=== PATIENT | male | born 1950 | race Two or more races ===

== ENCOUNTER 2021-04-21 12:57 | Inpatient (IN) | payer OTHER, MEDICAID ==
[~2021-04-21] VITALS: Ht 182.9 cm; Wt 57.0 kg
[2021-04-21] MEDS ORDERED: SODIUM CHLORIDE 0.9% 1,000 ML IVB ONE (13:15)
[2021-04-21] MEDS ORDERED: ONDANSETRON HCL 4 MG/2 ML VIAL IV ONE (13:15)
[2021-04-21 14:05] LABS: Hematocrit 55.2 % (41.0-53.0); Hemoglobin 18.5 g/dL (13.5-17.5); Mean Corpuscular Hemoglobin 32.6 pg (28.0-32.0); Mean Corpuscular Hgb Conc. 33.5 g/dL (32.0-36.0); Mean Corpuscular Volume 97.4 fL (80.0-100.0); Red Blood Cells 5.67 10^6/uL (4.5-5.90); Red Cell Distribution Width 12.8 % (11.8-14.3); White Blood Cell 24.8 10^3/uL (4.4-10.8)
[2021-04-21 14:15] LABS: Band Neutrophils % (manual) 0; Basophils % (manual) 0 (0.0-2.0); Blast Cells 0; Eosinophils % (manual) 0 (0-7); Metamyelocytes % 0; Myelocytes % 0; Promyelocytes % 0; Reactive Lymphocytes 0
[2021-04-21 14:21] LABS: Calcium 10.2 mg/dL (8.5-10.1); Potassium 5.1 mmol/L (3.5-5.1)
[2021-04-21 14:23] LABS: BUN/Creatinine Ratio 5.2
[2021-04-21 14:26] LABS: Total Protein 9.5 g/dL (6.4-8.2)
[2021-04-21 14:56] LABS: Lymphocytes % (manual) 2 (10.0-50.0); Monocytes % (manual) 4 (0-12)
[2021-04-21] MEDS ORDERED: ONDANSETRON HCL 4 MG/2 ML VIAL IV PRN (18:30)
[2021-04-21] MEDS ORDERED: NITROGLYCERIN 0.4 MG SL TAB SL PRN (18:30)
[2021-04-21] MEDS ORDERED: MORPHINE SULF INJ 2 MG/ML SYRINGE 1ML IV PRN ×2 (18:30)
[2021-04-21] MEDS ORDERED: ACETAMINOPHEN 500 MG TAB PO PRN (18:30)
[2021-04-21] MEDS ORDERED: HYDROcodone-ACET 5/325MG TAB PO PRN (18:30)
[2021-04-21] MEDS ORDERED: levoFLOXacin 500MG 100 ML IV ONE (18:45)
[2021-04-21] MEDS: SODIUM CHLORIDE 0.9% 1,000 ML IV SCH (19:06)
[2021-04-21 20:11] LABS: Urine Bacteria MOD /hpf (None Seen); Urine Blood 2+ /uL (Negative); Urine Hyaline Cast MANY /lpf (0 - 2); Urine Mucus MODERATE (None Seen); Urine Specific Gravity 1.025 (1.001-1.035); Urine WBC 127 /hpf (0 - 3)
[2021-04-21] MEDS: metroNIDAZOLE 500MG/100ML 100 ML IV SCH (22:22)
[2021-04-22 04:18] VITALS: BP 141/72
[2021-04-22] MEDS: SODIUM CHLORIDE 0.9% 1,000 ML IV SCH ×2 (05:05→16:42)
[2021-04-22 05:30] VITALS: BP 141/72
[2021-04-22] MEDS: metroNIDAZOLE 500MG/100ML 100 ML IV SCH (05:30)
[2021-04-22 08:14] LABS: Basophils # (auto) 0 10 ^3/uL (0-0.2); Basophils % (auto) 0.3 % (0.0-2.0); Eosinophils # (auto) 0.1 10 ^3/uL (0-0.8); Eosinophils % (auto) 0.4 % (0.0-7.0); Hematocrit 43.5 % (41.0-53.0); Hemoglobin 15.1 g/dL (13.5-17.5); Lymphocytes # (auto) 0.6 10 ^3/uL (0.4-5.4); Mean Corpuscular Hemoglobin 33.6 pg (28.0-32.0); Mean Corpuscular Hgb Conc. 34.7 g/dL (32.0-36.0); Mean Corpuscular Volume 96.7 fL (80.0-100.0); Monocytes # (auto) 0.7 10 ^3/uL (0-1.3); Monocytes % (auto) 4.5 % (0.0-12.0); Neutrophils # (auto) 14.5 10 ^3/uL (1.6-8.6); Neutrophils % (auto) 90.8 % (37.0-80.0); Red Cell Distribution Width 12.8 % (11.8-14.3)
[2021-04-22 08:34] LABS: BUN/Creatinine Ratio 11.4; Calcium 8.2 mg/dL (8.5-10.1); Potassium 4.2 mmol/L (3.5-5.1)
[2021-04-22 09:02] VITALS: BP 135/75
[2021-04-22] MEDS ORDERED: ENOXAPARIN SOD 40 MG/0.4 ML SYRINGE SC SCH (10:00)
[2021-04-22] MEDS: levoFLOXacin 250MG 100 ML IV SCH (10:02)
[2021-04-22] MEDS: NICOTINE 21MG/24 HR TOPICAL PATCH TD SCH (10:03)
[2021-04-22 12:38] VITALS: BP 138/81
[2021-04-22 17:13] VITALS: BP 151/68
[2021-04-22 22:00] VITALS: BP 140/87
[2021-04-23] MEDS: SODIUM CHLORIDE 0.9% 1,000 ML IV SCH ×3 (00:30→16:13)
[2021-04-23 05:00] VITALS: BP 149/89
[2021-04-23 05:23] LABS: Basophils # (auto) 0 10 ^3/uL (0-0.2); Neutrophils # (auto) 9.9 10 ^3/uL (1.6-8.6); Neutrophils % (auto) 79.8 % (37.0-80.0)
[2021-04-23 05:27] LABS: Basophils % (auto) 0.2 % (0.0-2.0); Eosinophils # (auto) 0.2 10 ^3/uL (0-0.8); Eosinophils % (auto) 1.3 % (0.0-7.0); Hematocrit 42.5 % (41.0-53.0); Hemoglobin 15.2 g/dL (13.5-17.5); Lymphocytes % (auto) 8.3 % (10.0-50.0); Mean Corpuscular Hemoglobin 34.2 pg (28.0-32.0); Mean Corpuscular Hgb Conc. 35.7 g/dL (32.0-36.0); Mean Corpuscular Volume 95.9 fL (80.0-100.0); Monocytes # (auto) 1.3 10 ^3/uL (0-1.3); Monocytes % (auto) 10.4 % (0.0-12.0); Nucleated Red Blood Cells % 0.1 %; Red Blood Cells 4.44 10^6/uL (4.5-5.90); Red Cell Distribution Width 12.5 % (11.8-14.3); White Blood Cell 12.4 10^3/uL (4.4-10.8)
[2021-04-23 05:44] LABS: Potassium 3.6 mmol/L (3.5-5.1)
[2021-04-23 05:47] LABS: BUN/Creatinine Ratio 13.1
[2021-04-23 08:57] VITALS: BP 144/91
[2021-04-23] MEDS: NICOTINE 21MG/24 HR TOPICAL PATCH TD SCH (09:45)
[2021-04-23] MEDS: levoFLOXacin 250MG 100 ML IV SCH (09:45)
[2021-04-23 13:00] VITALS: BP 143/87
[2021-04-23 16:31] VITALS: BP 144/82
[2021-04-23] MEDS: metroNIDAZOLE 500 MG TAB PO SCH (21:52)
[2021-04-23 22:06] VITALS: BP 139/80
[2021-04-24 05:30] VITALS: BP 135/88
[2021-04-24 05:32] LABS: Basophils # (auto) 0 10 ^3/uL (0-0.2); Nucleated Red Blood Cells % 0.1 %
[2021-04-24] MEDS: metroNIDAZOLE 500 MG TAB PO SCH (05:33)
[2021-04-24 05:35] LABS: Basophils % (auto) 0.5 % (0.0-2.0); Eosinophils # (auto) 0.6 10 ^3/uL (0-0.8); Eosinophils % (auto) 6.8 % (0.0-7.0); Lymphocytes # (auto) 1.6 10 ^3/uL (0.4-5.4); Lymphocytes % (auto) 18.5 % (10.0-50.0); Mean Corpuscular Hemoglobin 34.3 pg (28.0-32.0); Mean Corpuscular Hgb Conc. 35.8 g/dL (32.0-36.0); Mean Corpuscular Volume 95.8 fL (80.0-100.0); Monocytes # (auto) 1.1 10 ^3/uL (0-1.3); Monocytes % (auto) 12.7 % (0.0-12.0); Neutrophils # (auto) 5.4 10 ^3/uL (1.6-8.6); Neutrophils % (auto) 61.5 % (37.0-80.0); Red Blood Cells 4.38 10^6/uL (4.5-5.90); Red Cell Distribution Width 12.5 % (11.8-14.3); White Blood Cell 8.8 10^3/uL (4.4-10.8)
[2021-04-24] MEDS: SODIUM CHLORIDE 0.9% 1,000 ML IV SCH (06:51)
[2021-04-24 08:41] VITALS: BP 146/94
[2021-04-24] MEDS: NICOTINE 21MG/24 HR TOPICAL PATCH TD SCH (09:24)
[2021-04-24] MEDS ORDERED: levoFLOXacin 500MG 100 ML IV SCH (10:00)
[2021-04-24] MEDS ORDERED: FLORASTOR (S. BOULARDII) 250 MG CAP PO SCH (10:00)
== END 2021-04-24 12:20 | disposition home or self-care (01) | DRG 871 ==
LOC: EDBD 12:57 → ER 12:57 → TELE 18:27 → TELE-CENTR 04-22 03:40 → CENTRAL 04-23 09:49
PROVIDERS: ADMIT Nurse Practitioner Acute Care; ATTEND Internal Medicine
DX: A41.9 Sepsis, unspecified organism (principal); R65.21 Severe sepsis with septic shock; N17.0 Acute kidney failure with tubular necrosis; N39.0 Urinary tract infection, site not specified; A04.72 Enterocolitis due to Clostridium difficile, not specified as recurrent; N18.32 Chronic kidney disease, stage 3b; J44.9 Chronic obstructive pulmonary disease, unspecified; F17.210 Nicotine dependence, cigarettes, uncomplicated; M47.9 Spondylosis, unspecified; Z20.822 Contact with and (suspected) exposure to COVID-19; R42 Dizziness and giddiness; Z90.79 Acquired absence of other genital organ(s)
CPT/HCPCS: 36415; 71045; 74176; 80048; 80053; 81001; 82150; 83690; 85007; 85025; 85027; 87040; 87045; 87086; 87088; 87186; 87426; 87427; 87493; 93005; 96361; 96365; 96367; G0378; J1956; J3490

== ENCOUNTER 2022-12-18 11:36 | Inpatient (IN) | payer OTHER, MEDICAID ==
[~2022-12-18] VITALS: Ht 317.5 cm; Wt 59.6 kg
[2022-12-18 15:00] LABS: Basophils # (auto) 0.1 10 ^3/uL (0-0.2); Basophils % (auto) 1.3 % (0.0-2.0); Eosinophils # (auto) 0.4 10 ^3/uL (0-0.8); Eosinophils % (auto) 4.4 % (0.0-7.0); Hematocrit 47.1 % (41.0-53.0); Hemoglobin 16.1 g/dL (13.5-17.5); Lymphocytes # (auto) 3.2 10 ^3/uL (0.4-5.4); Mean Corpuscular Hgb Conc. 34.2 g/dL (32.0-36.0); Mean Corpuscular Volume 96.7 fL (80.0-100.0); Monocytes # (auto) 0.9 10 ^3/uL (0-1.3); Monocytes % (auto) 8.8 % (0.0-12.0); Neutrophils # (auto) 5.4 10 ^3/uL (1.6-8.6); Neutrophils % (auto) 53.5 % (37.0-80.0); Nucleated Red Blood Cells % 0.1 %; Red Blood Cells 4.87 10^6/uL (4.5-5.90); Red Cell Distribution Width 12.9 % (11.8-14.3); White Blood Cell 10.1 10^3/uL (4.4-10.8)
[2022-12-18 15:16] LABS: INR 0.98 (0.9-1.15)
[2022-12-18 15:24] LABS: Albumin 3.4 g/dL (3.4-5.0); Calcium 9.1 mg/dL (8.5-10.1); Potassium 4.1 mmol/L (3.5-5.1)
[2022-12-18 15:28] LABS: BUN/Creatinine Ratio 9.9 (10.0-20.0); Bilirubin, Total 0.9 mg/dL (0.2-1.0); Total Protein 7.3 g/dL (6.4-8.2)
[2022-12-18] MEDS ORDERED: ENOXAPARIN SOD 60 MG/0.6 ML SYRINGE SC ONE (17:15)
[2022-12-18] MEDS ORDERED: MORPHINE SULFATE INJ 2 MG/ml SYRG IV PRN (18:45)
[2022-12-18] MEDS ORDERED: DOCUSATE SOD 100 MG CAP PO PRN (18:45)
[2022-12-18] MEDS ORDERED: ONDANSETRON HCL 4 MG/2 ML VIAL IV PRN (18:45)
[2022-12-18] MEDS: ENOXAPARIN SOD 60 MG/0.6 ML SYRINGE SC SCH (22:46)
[2022-12-19 00:44] VITALS: BP 136/72
[2022-12-19 06:27] LABS: Basophils # (auto) 0 10 ^3/uL (0-0.2); Basophils % (auto) 0.4 % (0.0-2.0); Eosinophils # (auto) 0.5 10 ^3/uL (0-0.8); Eosinophils % (auto) 7.6 % (0.0-7.0); Hemoglobin 14.7 g/dL (13.5-17.5); Lymphocytes # (auto) 2.5 10 ^3/uL (0.4-5.4); Lymphocytes % (auto) 35.8 % (10.0-50.0); Mean Corpuscular Hemoglobin 33.3 pg (28.0-32.0); Mean Corpuscular Hgb Conc. 34.1 g/dL (32.0-36.0); Mean Corpuscular Volume 97.5 fL (80.0-100.0); Monocytes # (auto) 0.6 10 ^3/uL (0-1.3); Monocytes % (auto) 8.7 % (0.0-12.0); Neutrophils # (auto) 3.3 10 ^3/uL (1.6-8.6); Neutrophils % (auto) 47.5 % (37.0-80.0); Nucleated Red Blood Cells % 0.1 %; Red Blood Cells 4.41 10^6/uL (4.5-5.90); Red Cell Distribution Width 12.9 % (11.8-14.3)
[2022-12-19 07:23] LABS: Potassium 3.8 mmol/L (3.5-5.1)
[2022-12-19 07:33] LABS: Albumin 2.9 g/dL (3.4-5.0); BUN/Creatinine Ratio 14.1 (10.0-20.0); Calcium 8.5 mg/dL (8.5-10.1); Total Protein 5.9 g/dL (6.4-8.2)
[2022-12-19 08:30] VITALS: BP 125/72
[2022-12-19] MEDS: ENOXAPARIN SOD 60 MG/0.6 ML SYRINGE SC SCH ×2 (11:49→21:51)
[2022-12-19] MEDS: NICOTINE 21MG/24 HR TOPICAL PATCH TD SCH (11:51)
[2022-12-19 12:30] VITALS: BP 151/75
[2022-12-19] MEDS ORDERED: IOHEXOL 350 MG/ML 100ML IJ ONE ×2 (12:34)
[2022-12-19 16:30] VITALS: BP 140/76
[2022-12-19 22:00] VITALS: BP 138/89
[2022-12-20 05:00] VITALS: BP 128/77
[2022-12-20 09:00] VITALS: BP 138/77
[2022-12-20] MEDS: ENOXAPARIN SOD 60 MG/0.6 ML SYRINGE SC SCH ×2 (10:58→22:12)
[2022-12-20] MEDS: NICOTINE 21MG/24 HR TOPICAL PATCH TD SCH (10:59)
[2022-12-20 13:00] VITALS: BP 157/73
[2022-12-20 17:00] VITALS: BP 141/82
[2022-12-20 21:52] VITALS: BP 136/84
[2022-12-21 05:00] VITALS: BP 137/79
[2022-12-21 09:00] VITALS: BP 114/88
[2022-12-21] MEDS: ENOXAPARIN SOD 60 MG/0.6 ML SYRINGE SC SCH (10:33)
[2022-12-21] MEDS: NICOTINE 21MG/24 HR TOPICAL PATCH TD SCH (10:46)
[2022-12-21 13:00] VITALS: BP 140/86
[2022-12-21 17:00] VITALS: BP 142/86
[2022-12-21] MEDS: APIXABAN 5 MG TAB PO SCH (21:42)
[2022-12-21 21:47] VITALS: BP 144/82
[2022-12-22 05:03] VITALS: BP 132/73
[2022-12-22 08:32] VITALS: BP 132/83
[2022-12-22] MEDS: APIXABAN 5 MG TAB PO SCH (09:59)
[2022-12-22] MEDS: NICOTINE 21MG/24 HR TOPICAL PATCH TD SCH (09:59)
[2022-12-22] MEDS ORDERED: RIVA2.5T PO (10:57)
[2022-12-22] MEDS ORDERED: ATOR20TA PO (10:57)
[2022-12-22] MEDS ORDERED: ASPI1TAB20 PO (10:57)
[2022-12-22 12:44] VITALS: BP 142/93
== END 2022-12-22 14:28 | disposition home or self-care (01) | DRG 552 ==
LOC: ER 11:36 → OVERFLOW 18:45 → EAST 23:02
PROVIDERS: ADMIT Nurse Practitioner Family; ATTEND Internal Medicine
DX: M50.30 Other cervical disc degeneration, unspecified cervical region (principal); I70.202 Unspecified atherosclerosis of native arteries of extremities, left leg; F10.10 Alcohol abuse, uncomplicated; G89.29 Other chronic pain; Z20.822 Contact with and (suspected) exposure to COVID-19; I10 Essential (primary) hypertension; K59.00 Constipation, unspecified; M43.17 Spondylolisthesis, lumbosacral region; M47.819 Spondylosis without myelopathy or radiculopathy, site unspecified; M51.36 Other intervertebral disc degeneration, lumbar region; M51.37 Other intervertebral disc degeneration, lumbosacral region; R32 Unspecified urinary incontinence; Y90.9 Presence of alcohol in blood, level not specified
CPT/HCPCS: 36415; 72040; 72100; 75635; 80053; 85025; 85610; 87426; 93926; 93971; 96372; 97110; 97116; 97163; 97530; G0378